=== PATIENT | male | born 1950 | race Caucasian/White ===

== ENCOUNTER 2017-04-02 12:01 | Inpatient (IN) | payer OTHER ==
[~2017-04-02] VITALS: Ht 177.8 cm; Wt 67.9 kg
[~2017-04-02 12:01] MED LIST: RIVA1.5 TD; Zofran Odt8 MG SL
[2017-04-02] MEDS ORDERED: EXELON1 EACH TD (12:15)
[2017-04-02 12:34] LABS: Hematocrit 38.2 % (37.0-53.0); Hemoglobin 12.5 g/dL (13.5-17.5); Mean Corpuscular HGB 29.3 pg (26.0-34.0); Mean Corpuscular HGB Conc 32.7 g/dL (31.5-36.5); Mean Corpuscular Volume 90 fL (80-100); Mean Platelet Volume 10.9 fL (9.1-12.4); Platelet Count 170 K/mm3 (150-400); RDW Coefficient Variation 13.2 % (11.7-14.2); RDW Standard Deviation 43.9 fL (35.1-46.3); Red Blood Cell Count 4.26 M/mm3 (4.30-5.90); White Blood Cell Count 6.39 K/mm3 (4.00-11.30)
[2017-04-02 12:51] LABS: Alanine Aminotransfer (ALT/SGP 34 U/L (12-78); Albumin/Globulin Ratio 1.1 (0.8-1.8); Alk Phos 62 U/L (50-136); Anion Gap 7 mmol/L (6-16); Aspartate Aminotrans (AST/SGOT 22 U/L (12-37); Blood Urea Nitrogen 16 mg/dL (8-24); Bun/Creatinine Ratio 17.4 (12.0-20.0); CO2, Blood 31 mmol/L (21-32); Calcium, Blood 9.1 mg/dL (8.5-10.1); Chloride, Blood 101 mmol/L (98-108); Creatinine, Blood 0.92 mg/dL (0.60-1.20); Ethanol (Alcohol), Blood, Med <3 mg/dL; Globulin, Blood 3.6 g/dL (2.2-4.0); Glomerular Filtration Rate >60 (60-); Glucose, Blood 86 mg/dL (70-99); Potassium, Blood 4.6 mmol/L (3.5-5.5); Sodium, Blood 139 mmol/L (136-145); Total Protein, Blood 7.6 g/dL (6.4-8.2)
[2017-04-02 12:52] LABS: Source, Urine Clean Catch
[2017-04-02 12:56] LABS: BASOPHILS PERCENT MAN 0 % (0-2); EOSINOPHILS PERCENT MAN 0 % (0-6); LYMPHOCYTES % ATYPICAL MANUAL 4 % (0-0); LYMPHOCYTES ABSOLUTE MAN 0.95 K/mm3 (0.84-5.20); LYMPHOCYTES PERCENT MAN 11 % (21-46); MONOCYTES ABSOLUTE MAN 0.31 K/mm3 (0.16-1.47); MONOCYTES PERCENT MAN 5 % (4-13); NEUTROPHILS ABSOLUTE MAN 5.11 K/mm3 (1.96-9.15); SEG NEUTROPHILS PERCENT MAN 80 % (41-73); TOTAL CELLS COUNTED 100
[2017-04-02 13:06] LABS: Appearance, Urine Clear (Clear); Bilirubin, Urine Neg (Neg); Blood, Urine Neg (Neg); Color, Urine Yellow (P-Yellow); Glucose Qualitative, Urine Neg (Neg); Ketones, Urine 1+ (Neg); Leukocyte Esterase, Urine Neg (Neg); Nitrite, Urine Neg (Neg); Protein, Urine 1+ (Neg); Urobilinogen, Urine 1+ (Normal)
[2017-04-03 05:12] LABS: BASOPHILS ABSOLUTE AUTO 0.02 K/mm3 (0.00-0.23); BASOPHILS PERCENT AUTO 0 % (0-2); EOSINOPHILS ABSOLUTE AUTO 0.02 K/mm3 (0.00-0.68); EOSINOPHILS PERCENT AUTO 0 % (0-6); Hematocrit 39.2 % (37.0-53.0); Hemoglobin 12.9 g/dL (13.5-17.5); IMMATURE GRAN ABSOLUTE AUTO 0.02 K/mm3 (0.00-0.10); IMMATURE GRAN PERCENT AUTO 0 % (0-1); LYMPHOCYTES ABSOLUTE AUTO 0.73 K/mm3 (0.84-5.20); LYMPHOCYTES PERCENT AUTO 9 % (21-46); MONOCYTES ABSOLUTE AUTO 0.62 K/mm3 (0.16-1.47); MONOCYTES PERCENT AUTO 8 % (4-13); Mean Corpuscular HGB 29.8 pg (26.0-34.0); Mean Corpuscular HGB Conc 32.9 g/dL (31.5-36.5); Mean Corpuscular Volume 91 fL (80-100); NEUTROPHILS PERCENT AUTO 83 % (41-73); Platelet Count 160 K/mm3 (150-400); RDW Standard Deviation 43.2 fL (35.1-46.3); Red Blood Cell Count 4.33 M/mm3 (4.30-5.90); White Blood Cell Count 8.11 K/mm3 (4.00-11.30)
[2017-04-03 05:28] LABS: Alanine Aminotransfer (ALT/SGP 38 U/L (12-78); Albumin, Blood 3.7 g/dL (3.4-5.0); Alk Phos 66 U/L (50-136); Anion Gap 8 mmol/L (6-16); Aspartate Aminotrans (AST/SGOT 27 U/L (12-37); Bilirubin, Total 1.1 mg/dL (0.1-1.0); Blood Urea Nitrogen 12 mg/dL (8-24); Bun/Creatinine Ratio 15.5 (12.0-20.0); CO2, Blood 29 mmol/L (21-32); Calcium, Blood 9.1 mg/dL (8.5-10.1); Chloride, Blood 104 mmol/L (98-108); Creatinine, Blood 0.77 mg/dL (0.60-1.20); Globulin, Blood 3.6 g/dL (2.2-4.0); Glomerular Filtration Rate >60 (60-); Glucose, Blood 105 mg/dL (70-99); Potassium, Blood 4.2 mmol/L (3.5-5.5); Sodium, Blood 141 mmol/L (136-145); Total Protein, Blood 7.3 g/dL (6.4-8.2)
== END 2017-04-08 13:05 | disposition home or self-care (01) | DRG 545 ==
LOC: ER 12:01 → MEDS 15:53 → ER 16:05 → MEDS 16:39
PROVIDERS: Family Medicine; Internal Medicine
DX: E85.4 Organ-limited amyloidosis (principal); I61.9 Nontraumatic intracerebral hemorrhage, unspecified; G20 Parkinson's disease; G93.89 Other specified disorders of brain; F02.80 Dementia in other diseases classified elsewhere, unspecified severity, without behavioral disturbance, psychotic disturbance, mood disturbance, and anxiety; I68.0 Cerebral amyloid angiopathy; I69.919 Unspecified symptoms and signs involving cognitive functions following unspecified cerebrovascular disease; F01.50 Vascular dementia, unspecified severity, without behavioral disturbance, psychotic disturbance, mood disturbance, and anxiety
CPT/HCPCS: 36415; 70450; 71046; 80053; 85025; 92526; 92610; 93005; 93010; 96361; 96374; 96375; 96376; 97110; 97116; 97162; 97166; 97530; 97535; 99285; C9113; G0378; G0480; G8978; G8979; G8987; G8988; G8996; G8997; G8998; J7030

== ENCOUNTER 2018-12-01 15:29 | Emergency (ER) | payer OTHER ==
[~2018-12-01] VITALS: Ht 177.8 cm; Wt 90.7 kg
[~2018-12-01 15:29] MED LIST changes: +EXELON1 EACH TD
[2018-12-01] MEDS ORDERED: SINEMET 25-1001 EACH PO (15:42)
[2018-12-01] MEDS ORDERED: DOCU100 PO (15:42)
[2018-12-01] MEDS ORDERED: POLYETHYLENE G500 G1 PO (15:43)
[2018-12-01] MEDS ORDERED: Seroquel Xr50 MG PO (15:44)
[2018-12-01] MEDS ORDERED: QUET25 PO (15:44)
[2018-12-01] MEDS ORDERED: BISA10S PR (15:45)
[2018-12-01] MEDS ORDERED: LORAZEPAM (15:47)
== END 2018-12-01 17:05 | disposition home or self-care (01) ==
LOC: ER 15:29
DX: S09.90XA Unspecified injury of head, initial encounter (principal); Z79.899 Other long term (current) drug therapy; W19.XXXA Unspecified fall, initial encounter
CPT/HCPCS: 99283

== ENCOUNTER 2018-12-05 12:54 | Emergency (ER) | payer OTHER ==
[~2018-12-05] VITALS: Ht 172.7 cm; Wt 72.6 kg
[~2018-12-05 12:54] MED LIST changes: +BISA10S PR; +DOCU100 PO; +LORAZEPAM; +POLYETHYLENE G500 G1 PO; +QUET25 PO; +SINEMET 25-1001 EACH PO; +Seroquel Xr50 MG PO
[2018-12-05 13:10] LABS: Calcium, Ionized (POC) 1.18 mmol/L (1.10-1.46); Chloride (POC) 102 mmol/L (98-108); Glucose (ISTAT POC) 124 mg/dL (70-99); Hemoglobin (POC) 11.9 g/dL (13.5-17.5); Potassium (POC) 4.1 mmol/L (3.5-5.5); Sodium (POC) 137 mmol/L (135-148); Total CO2 (POC) 28 mmol/L (21-32)
== END 2018-12-05 13:43 | disposition home or self-care (01) ==
LOC: ER 12:54
PROVIDERS: Emergency Medicine
DX: R41.82 Altered mental status, unspecified (principal); F03.90 Unspecified dementia, unspecified severity, without behavioral disturbance, psychotic disturbance, mood disturbance, and anxiety; Z79.899 Other long term (current) drug therapy; G20 Parkinson's disease
CPT/HCPCS: 36415; 80047; 85014; 93005; 93010; 99284-25

== ENCOUNTER 2019-01-15 07:21 | Emergency (ER) | payer OTHER ==
[~2019-01-15] VITALS: Ht 182.9 cm; Wt 81.7 kg
[2019-01-15] MEDS ORDERED: SINEMET 25-1001 EACH PO (07:27)
[2019-01-15] MEDS ORDERED: DOCU100 PO (07:28)
[2019-01-15] MEDS ORDERED: FAMO20 PO (07:28)
[2019-01-15] MEDS ORDERED: MIRALAX17 GM (07:28)
[2019-01-15] MEDS ORDERED: QUET25 PO (07:29)
[2019-01-15] MEDS ORDERED: EXELON1 EACH (07:30)
[2019-01-15] MEDS ORDERED: Seroquel Xr50 MG PO (07:30)
== END 2019-01-15 09:13 | disposition home or self-care (01) ==
LOC: ER 07:21
DX: S09.90XA Unspecified injury of head, initial encounter (principal); G20 Parkinson's disease; F03.90 Unspecified dementia, unspecified severity, without behavioral disturbance, psychotic disturbance, mood disturbance, and anxiety; Z79.899 Other long term (current) drug therapy; W01.10XA Fall on same level from slipping, tripping and stumbling with subsequent striking against unspecified object, initial encounter
CPT/HCPCS: 70450; 99284-25

== ENCOUNTER 2019-03-22 06:31 | Emergency (ER) | payer MEDICARE ==
[~2019-03-22] VITALS: Ht 177.8 cm; Wt 83.9 kg
[~2019-03-22 06:31] MED LIST changes: +EXELON1 EACH; +FAMO20 PO; +MIRALAX17 GM
== END 2019-03-22 09:35 | disposition home or self-care (01) ==
LOC: ER 06:31
DX: S09.90XA Unspecified injury of head, initial encounter (principal); W18.30XA Fall on same level, unspecified, initial encounter; G20 Parkinson's disease; F02.80 Dementia in other diseases classified elsewhere, unspecified severity, without behavioral disturbance, psychotic disturbance, mood disturbance, and anxiety
CPT/HCPCS: 70450; 99284-25

== ENCOUNTER 2019-05-27 09:46 | Emergency (ER) | payer OTHER, MEDICARE ==
[~2019-05-27] VITALS: Ht 182.9 cm; Wt 77.1 kg
[~2019-05-27 09:46] MED LIST changes: +ONDA4ODT MM
[2019-05-27 10:19] LABS: BASOPHILS ABSOLUTE AUTO 0.03 K/mm3 (0.00-0.23); BASOPHILS PERCENT AUTO 1 % (0-2); EOSINOPHILS ABSOLUTE AUTO 0.01 K/mm3 (0.00-0.68); EOSINOPHILS PERCENT AUTO 0 % (0-6); Hemoglobin 13.7 g/dL (13.5-17.5); IMMATURE GRAN ABSOLUTE AUTO 0.01 K/mm3 (0.00-0.10); IMMATURE GRAN PERCENT AUTO 0 % (0-1); LYMPHOCYTES ABSOLUTE AUTO 0.69 K/mm3 (0.84-5.20); LYMPHOCYTES PERCENT AUTO 11 % (21-46); MONOCYTES PERCENT AUTO 8 % (4-13); Mean Corpuscular HGB 29.3 pg (26.0-34.0); Mean Corpuscular HGB Conc 31.9 g/dL (31.5-36.5); Mean Corpuscular Volume 92 fL (80-100); Mean Platelet Volume 11.2 fL (9.1-12.4); NEUTROPHILS ABSOLUTE AUTO 5.32 K/mm3 (1.96-9.15); NEUTROPHILS PERCENT AUTO 81 % (41-73); Platelet Count 206 K/mm3 (150-400); RDW Coefficient Variation 13.1 % (11.7-14.2); RDW Standard Deviation 44.2 fL (35.1-46.3); Red Blood Cell Count 4.67 M/mm3 (4.30-5.90); White Blood Cell Count 6.56 K/mm3 (4.00-11.30)
[2019-05-27 10:31] LABS: Alanine Aminotransfer (ALT/SGP 15 U/L (12-78); Albumin, Blood 3.6 g/dL (3.4-5.0); Albumin/Globulin Ratio 0.9 (0.8-1.8); Alk Phos 92 U/L (50-136); Anion Gap 7 mmol/L (6-16); Aspartate Aminotrans (AST/SGOT 31 U/L (12-37); Bilirubin, Total 0.8 mg/dL (0.1-1.0); Blood Urea Nitrogen 15 mg/dL (8-24); Bun/Creatinine Ratio 18.3 (12.0-20.0); CO2, Blood 25 mmol/L (21-32); Calcium, Blood 9.2 mg/dL (8.5-10.1); Chloride, Blood 107 mmol/L (98-108); Creatinine, Blood 0.82 mg/dL (0.60-1.20); Glomerular Filtration Rate >60 (60-); Glucose, Blood 120 mg/dL (70-99); Potassium, Blood 4.5 mmol/L (3.5-5.5); Sodium, Blood 139 mmol/L (136-145); Total Protein, Blood 7.6 g/dL (6.4-8.2)
[2019-05-27 11:28] LABS: Source, Urine Catheter
[2019-05-27 11:52] LABS: Appearance, Urine Clear (Clear); Bilirubin, Urine Neg (Neg); Blood, Urine Neg (Neg); Color, Urine Yellow (P-Yellow); Glucose Qualitative, Urine Neg (Neg); Ketones, Urine 1+ (Neg); Leukocyte Esterase, Urine Neg (Neg); Nitrite, Urine Neg (Neg); Protein, Urine 1+ (Neg); Urobilinogen, Urine 2+ (Normal)
[2019-05-27] MEDS ORDERED: ONDA4ODT MM (12:40)
[2019-05-27] MEDS ORDERED: Motion Sickness25 M1 PO (12:40)
== END 2019-05-27 14:05 | disposition home or self-care (01) ==
LOC: ER 09:46
PROVIDERS: Emergency Medicine
DX: R42 Dizziness and giddiness (principal); R11.2 Nausea with vomiting, unspecified; G20 Parkinson's disease; F02.80 Dementia in other diseases classified elsewhere, unspecified severity, without behavioral disturbance, psychotic disturbance, mood disturbance, and anxiety; Z79.899 Other long term (current) drug therapy
CPT/HCPCS: 36415; 51701; 80053; 85025; 93005; 93010; 99284-25